=== PATIENT | male | born 1990 | race American Indian/Alaskan Native ===

== ENCOUNTER 2018-08-10 22:30 | Emergency (ER) | payer OTHER ==
[2018-08-10 22:58] VITALS: BP 130/77
== END 2018-08-11 02:30 | disposition left against medical advice (07) ==
LOC: ED 22:30
DX: R51 Headache (principal); R50.9 Fever, unspecified; Z53.21 Procedure and treatment not carried out due to patient leaving prior to being seen by health care provider
CPT/HCPCS: 87116; 87400; 87430

== ENCOUNTER 2018-08-11 09:46 | Emergency (ER) | payer SELFPAY ==
[2018-08-11] MEDS ORDERED: IBUPROFEN PO ONE (10:53)
[2018-08-11] MEDS ORDERED: ZOFRAN ODT PO ONE (10:53)
--- NOTE | 2018-08-11 11:07 | Emergency Department Report ---
Minor Respiratory - HPI Chief Complaint: Nausea/Vomiting/Diarrhea Stated Complaint: HEADACHE/NAUSEA/VOMIT Time Seen by Provider: 08/11/18 10:42 Duration: 2 Days Pain Location: Other (back and leg soreness) Severity: moderate Minor Respiratory: Yes Rhinorrhea, Yes Sore Throat, Yes Able to Tolerate Fluids, Yes Cough, Yes Fever (chills), No Ear Pain, No Sick Contacts, No Hemoptysis, No Chest Pain, No Shortness of Breath ED Review of Systems ROS: Stated complaint: HEADACHE/NAUSEA/VOMIT Other details as noted in HPI Comment: All other systems reviewed and negative ED Past Medical Hx - Past Medical History Previous Medical History?: Yes Hx Hypertension: Yes - Surgical History Past Surgical History?: No - Social History Smoking Status: Current Every Day Smoker Substance Use Type: Alcohol - Medications Home Medications: Home Medications Medication Instructions Recorded Confirmed Last Taken Type ALBUTEROL Inhaler(NF) [VENTOLIN 1 puff IH Q4HRT PRN #1 inha 08/11/18 Unknown Rx Inhaler(NF)] HYDROcodone/ACETAMINOPHEN 1 each PO Q6HR PRN #12 tablet 08/11/18 Unknown Rx [Hydrocodone-Acetamin 5-325 mg] Ondansetron [Zofran Odt] 4 mg PO Q8HR #10 tab.rapdis 08/11/18 Unknown Rx predniSONE [Deltasone] 20 mg PO QDAY #5 tab 08/11/18 Unknown Rx Minor Respiratory Exam - Exam General: Vital signs noted. No distress. Alert and acting appropriately. HEENT: Yes Pharyngeal Erythema, Yes Moist Mucous Membranes, No Pharyngeal Exudates, No Rhinorrhea, No Conjuctival Injection, No Frontal Tenderness, No Maxillary Tenderness Ear: Neither TM Bulge, Neither TM Erythema, Neither EAC Pain, Neither EAC Discharge Neck: Yes Supple, No Adenopathy Lungs: Yes Good Air Exchange, Yes Cough, No Wheezes, No Ronchi, No Stridor, No Labored Respirations, No Retractions, No Use of Accessory Muscles, No Other Abnormal Lung Sounds Heart: Yes Regular, No Murmur Abdomen: Yes Normal Bowel Sounds, No Tenderness, No Peritoneal Signs Skin: No Rash, No Edema Neurologic: Alert and oriented, no deficits. Musculoskeletal: Unremarkable. ED Course Vital Signs 08/11/18 09:56 Temperature 99.4 F Pulse Rate 90 Respiratory 18 Rate Blood Pressure 124/76 O2 Sat by Pulse 99 Oximetry ED Medical Decision Making - Medical Decision Making The patient's strep test and flu tests from last night were negative. Patient left before he could be seen by physician. Patient will be treated for flulike illness and would be discharged home. Critical care attestation.: If time is entered above; I have spent that time in minutes in the direct care of this critically ill patient, excluding procedure time. ED Disposition Clinical Impression: Flu-like symptoms Disposition: DC-01 TO HOME OR SELFCARE Is pt being admited?: No Does the pt Need Aspirin: No Condition: Stable Instructions: Upper Respiratory Infection (ED) Referrals: CIPRIANO ARRIOLA MD [Primary Care Provider] - 3-5 Days Time of Disposition: 11:07
[2018-08-11 11:32] VITALS: BP 132/88
== END 2018-08-11 11:32 | disposition home or self-care (01) ==
LOC: ED 09:46
DX: R05 Cough (principal); R50.9 Fever, unspecified; J34.89 Other specified disorders of nose and nasal sinuses; F17.200 Nicotine dependence, unspecified, uncomplicated; I10 Essential (primary) hypertension
CPT/HCPCS: 99282; Q0162

== ENCOUNTER 2018-08-11 12:01 | Emergency (ER) | payer OTHER ==
[2018-08-11 12:14] VITALS: BP 126/65
--- NOTE | 2018-08-11 12:23 | Emergency Department Report ---
ED Recheck HPI - General Chief Complaint: Sore Throat Stated Complaint: SORE THROAT/PAIN/HEADACHE/DIZZY Time Seen by Provider: 08/11/18 12:11 Source: patient Mode of arrival: Ambulatory Limitations: No Limitations - History of Present Illness Initial Comments: This is a 28-year-old male nontoxic, well in appearance with no signs of distress noted presents to the ED for medication change. Patient stated he was just diagnosed with the flu and was given some prescrptions with the [employer] card. PAtient stated that he can not offered it. Patient denies any other complaints or symptoms. MD Complaint: medication refill request Symptoms Since Prior Visit: no new symptoms Associated Symptoms: none. denies: fever, chills, chest pain, shortness of breath, rash, malaise, nasuea, abdominal pain - Related Data Previous Rx's Medication Instructions Recorded Last Taken Type ALBUTEROL Inhaler(NF) [VENTOLIN 1 puff IH Q4HRT PRN #1 inha 08/11/18 Unknown Rx Inhaler(NF)] HYDROcodone/ACETAMINOPHEN 1 each PO Q6HR PRN #12 tablet 08/11/18 Unknown Rx [Hydrocodone-Acetamin 5-325 mg] Ondansetron [Zofran Odt] 4 mg PO Q8HR #10 tab.rapdis 08/11/18 Unknown Rx predniSONE [Deltasone] 20 mg PO QDAY #5 tab 08/11/18 Unknown Rx Allergies Allergy/AdvReac Type Severity Reaction Status Date / Time No Known Allergies Allergy Unverified 08/10/18 22:31 ED Review of Systems ROS: Stated complaint: SORE THROAT/PAIN/HEADACHE/DIZZY Other details as noted in HPI Constitutional: denies: chills, fever Eyes: denies: eye pain, eye discharge, vision change ENT: denies: ear pain, throat pain Respiratory: cough. denies: shortness of breath, wheezing Cardiovascular: denies: chest pain, palpitations Endocrine: no symptoms reported Gastrointestinal: denies: abdominal pain, nausea, diarrhea Genitourinary: denies: urgency, dysuria Musculoskeletal: denies: back pain, joint swelling, arthralgia Skin: denies: rash, lesions Neurological: denies: headache, weakness, paresthesias Psychiatric: denies: anxiety, depression Hematological/Lymphatic: denies: easy bleeding, easy bruising ED Past Medical Hx - Past Medical History Previous Medical History?: Yes Hx Hypertension: Yes - Surgical History Past Surgical History?: No - Social History Smoking Status: Current Every Day Smoker Substance Use Type: None - Medications Home Medications: Home Medications Medication Instructions Recorded Confirmed Last Taken Type ALBUTEROL Inhaler(NF) [VENTOLIN 1 puff IH Q4HRT PRN #1 inha 08/11/18 Unknown Rx Inhaler(NF)] HYDROcodone/ACETAMINOPHEN 1 each PO Q6HR PRN #12 tablet 08/11/18 Unknown Rx [Hydrocodone-Acetamin 5-325 mg] Ondansetron [Zofran Odt] 4 mg PO Q8HR #10 tab.rapdis 08/11/18 Unknown Rx predniSONE [Deltasone] 20 mg PO QDAY #5 tab 08/11/18 Unknown Rx ED Physical Exam - General Limitations: No Limitations ED Course Vital Signs 08/11/18 12:11 Temperature 98.3 F Pulse Rate 76 Respiratory 18 Rate Blood Pressure 126/65 O2 Sat by Pulse 98 Oximetry - Reevaluation(s) Reevaluation #1: 08/11/18 12:23 Patient is speaking in full sentences with no signs of distress noted. ED Recheck MDM - Medical Decision Making [employer] website ran and indicates that Deltsaone and Zofran is about $3 each with the [employer] RX card. I did get social work faculty member involved for assistance. Patient was instructed that he does need to take the medications as they were presc ribed. Patient was instructed to Follow-up with a primary care doctor in 3-5 days or if symptoms worsen and continue return to emergency room as soon as possible. At time of discharge, the patient does not seem toxic or ill in appearance. No acute signs of distress noted. Patient agrees to discharge treatment plan of care. No further questions noted by the patient. Critical care attestation.: If time is entered above; I have spent that time in minutes in the direct care of this critically ill patient, excluding procedure time. ED Disposition Clinical Impression: Flu-like symptoms Disposition: DC-01 TO HOME OR SELFCARE Is pt being admited?: No Does the pt Need Aspirin: No Condition: Stable Additional Instructions: Follow-up with a primary care doctor in 3-5 days or if symptoms worsen and continue return to emergency room as soon as possible. Referrals: PRIMARY CARE, [Referring] - 3-5 Days RAH GALVAN MD [Staff Physician] - 3-5 Days [facility] [Outside] - 3-5 Days [facility] [Outside] - 3-5 Days
== END 2018-08-11 14:00 | disposition home or self-care (01) ==
LOC: ED 12:01
DX: J02.9 Acute pharyngitis, unspecified (principal); I10 Essential (primary) hypertension; F17.200 Nicotine dependence, unspecified, uncomplicated
CPT/HCPCS: 99282

== ENCOUNTER 2018-08-16 12:17 | Emergency (ER) | payer SELFPAY | END 2018-08-16 15:44 | disposition left against medical advice (07) | LOC: ED 12:17 | DX: G43.909 Migraine, unspecified, not intractable, without status migrainosus (principal); Z53.21 Procedure and treatment not carried out due to patient leaving prior to being seen by health care provider ==